=== PATIENT | female | born 1975 | race Caucasian/White ===

== ENCOUNTER 2018-09-20 14:40 | Observation (INO) ==
--- NOTE | 2018-09-20 15:27 | Emergency Department Note ---
Disposition Clinical Impression: Chest pain Qualifiers: Chest pain type: unspecified Qualified Code(s): R07.9 - Chest pain, unspecified Disposition: Admitted As Inpatient Condition: Fair Time of Disposition: 17:27 General Adult HPI - General Chief complaint: ED Chest Pain Stated complaint: Chest Pain Time Seen by Provider: 09/20/18 14:49 Source: patient - History of Present Illness HPI Narrative: Ms. Lai is a 43-year-old female presented to the ED complaining of chest pain ongoing for the past 3 days. She reports sensation as a chest pressure unable to characterize the pain radiated. She reports has been ongoing for the past 3 days nothing worsens or nothing alleviates it. She reports walking does not worsen the pain and has not tried anything to alleviate the pain. She reports one week ago she presented to the ED complaining of dizziness and the dizziness has resolved. At the time of her dizziness she had bradycardia and thereafter followed outpatient with her PCP who wanted an outpatient echo and Holter monitor for the bradycardia but this new chest pain developed concerning her. She denies any previous episode of chest pain in the past. She denies any radiation of chest pain to her arms or her face. She denies any numbness or tingling. Pain is reproducible with palpation. Denies any recent upper respir atory infection. She denies fever, chills, shortness of breath, nausea, emesis. Pain Scale: 4 - Related Data Home Medications Medication Instructions Recorded Confirmed Colace 1 cap PO DAILY 11/21/14 11/21/14 Ferrous Sulfate 1 tab PO DAILY 11/21/14 11/21/14 Vit/FA 1 tab PO DAILY 11/21/14 11/21/14 Previous Rx's Medication Instructions Recorded Docusate [Colace] 100 mg PO BID #60 capsule 11/23/14 Ferrous Sulfate 325 mg PO DAILY #30 tablet 11/23/14 Ibuprofen [Motrin] 600 mg PO Q6HR PRN #90 tablet 11/23/14 OxyCODONE/APAP 5/325 [Percocet 1 each PO Q4HR PRN #30 tablet 11/23/14 5/325] methylPREDNISolone [Medrol] 4 mg PO TAPER 21 Days tablet 12/02/15 Allergies Allergy/AdvReac Type Severity Reaction Status Date / Time No Known Allergies Allergy Verified 11/21/14 10:34 All systems ED: reviewed and negative except as stated. Review of Systems: As Per HPI Constitutional: Denies: fever, chills Eyes: Denies: eye pain, vision change ENT ED: Denies: ear pain, dysphagia Cardiovascular: Reports: chest pain. Denies: dyspnea on exertion Respiratory: Reports: cough. Denies: dyspnea, wheezes Gastrointestinal: Denies: abdominal pain, nausea, vomiting Genitourinary: Denies: urgency, dysuria Musculoskeletal: Denies: back pain Neurological: Denies: headache, weakness Psychiatric: Reports: other (Denies any recent stressors) Past Medical History - Past Medical History Medical history: Reports: no medical history Surgical history: Reports: (2008, no complications) Psychiatric history: Reports: anxiety, depression - Social History Smoking Status: Current every day smoker Smokeless Tobacco Status: No Alcohol use: Reports: occasionally Drug use: Reports: none Physical Exam - General General appearance: alert, in no apparent distress - Head Head exam: atraumatic, normocephalic - Eye Eye exam: Present: normal appearance, EOMI. Absent: scleral icterus - ENT ENT exam: normal oropharynx, mucous membranes moist - Neck Neck exam: Present: full ROM, trachea midline - Chest Chest inspection: Present: normal inspection, tenderness (Left-sided chest wall tenderness, ribs 3 and 4) - Respiratory Respiratory exam: Present: normal lung sounds bilaterally. Absent: respiratory distress, wheezes - Cardiovascular Cardiovascular exam: Present: regular rate, normal rhythm, +S1, +S2 - Abdominal Exam Abdominal exam: Present: soft, Non-Tender. Absent: distention, guarding - Extremities Exam Extremities exam: Present: normal inspection, full ROM, tenderness. Absent: pedal edema - Neurological Exam Neurological exam: Present: alert, oriented X3 - Psychiatric Psychiatric exam: Present: normal affect, normal mood - Skin Skin exam: Present: warm, dry, intact Course Vital Signs Temperature 98.0 F 09/20/18 14:41 Pulse Rate 60 09/20/18 14:41 Respiratory Rate 16 09/20/18 14:41 Blood Pressure 123/73 09/20/18 14:41 O2 Sat by Pulse Oximetry 100 09/20/18 14:41 Temperature 98.0 F 09/20/18 14:41 Pulse Rate 60 09/20/18 14:41 Respiratory Rate 16 09/20/18 14:41 Blood Pressure 123/73 09/20/18 14:41 O2 Sat by Pulse Oximetry 100 09/20/18 14:41 Oxygen Delivery Oxygen Delivery Room Air Medical Decision Making - MDM Narrative Medical decision making narrative: Ming is a 43 old female presented to the ED from her outpatient clinic office due to chest pain. The risks chest pain has been ongoing for the past 3 days had outpatient echocardiogram and Holter monitor scheduled mid September. Chest pain has recently started and she is concerned initially because she was bradycardic during her. Her outpatient PCP contacted cardiology who wanted her admitted and get workup inpatient. Troponin, CBC, BMP will within normal limits. Cardiology wanted her admitted to be worked up inpatient, admitted the patient with hospice - Medical Records Medical records reviewed: Yes I reviewed the patient's medical records. - Lab Data Lab results reviewed: Yes I reviewed the patient's lab results. Result diagrams: 09/20/18 15:24 09/20/18 15:24 Lab Results 09/20/18 09/20/18 Range/Units 15:24 15:24 WBC 6.4 (4.3-11.1) K/mcL RBC 4.06 (3.82-4.97) M/mcL Hgb 12.5 (11.5-15.4) g/dL Hct 37.8 (35.3-44.9) % MCV 93.1 (83.0-100.0) fL MCH 30.8 (28.0-33.3) pg MCHC 33.1 (31.6-35.5) g/dL RDW 13.3 (11.5-14.5) % Plt Count 239 (140-400) K/mcL MPV 10.1 (9.4-12.4) fL Immature Gran % 0.3 (0-4) % Seg Neutrophils % 50.5 % Lymphocytes % 36.9 % Monocytes % 8.9 % Eosinophils % 3.1 % Basophils % 0.3 % Neutrophils # 3.2 (1.6-8.9) K/mcL Lymphocytes # 2.4 (0.6-4.6) K/mcL Monocytes # 0.6 (0.0-1.3) K/mcL Eosinophils # 0.2 (0.0-0.6) K/mcL Basophils # 0.0 (0.0-0.2) K/mcL Sodium 139 (136-145) mEq/L Potassium 3.8 (3.5-5.1) mEq/L Chloride 103 (98-107) mEq/L Carbon Dioxide 28 (23-29) mEq/L BUN 11 (6-20) mg/dL Creatinine 0.69 (0.60-1.20) mg/dL Est GFR ( Amer) > 60 (> 60) Est GFR (Non-Af Amer) > 60 (> 60) BUN/Creatinine Ratio 16 (6-26) Glucose 89 (70-105) mg/dL Calculated Osmolality 287 (280-300) Calcium 9.9 (8.6-10.3) mg/dL Troponin I < 0.03 (< 0.04) ng/mL TSH 0.926 (0.340-5.600) mcIU/mL - Radiology Data Radiology results reviewed: Yes I reviewed the patient's radiology results. - EKG Data EKG #1 EKG attestation: Yes I reviewed and interpreted this EKG. EKG results narrative: Normal sinus rhythm. No acute injury pattern intervals unremarkable Attestation Statement - Attestation Attestation: Dr. Patterson note: Patient seen in conjunction with resident Dr. Evelyn Sepulveda; please see her charting for complete documentation. Spent [id number] time with the patient and agree with the patient's treatment and disposition. Constant parasternal chest pain without radiation of exacerbating alleviating factors for 3 days. Seen at an outpatient office today and apparently a phone call was made a waste removalist who recommended the patient be admitted and he will see the patient tomorrow so that is what we did. EKG and blood work unremarkable. Symptoms are not different today than not worse today.
[2018-09-20 15:48] LABS: Basophils % 0.3 %; Eosinophils # 0.2 K/mcL (0.0-0.6); Eosinophils % 3.1 %; Hematocrit 37.8 % (35.3-44.9); Hemoglobin 12.5 g/dL (11.5-15.4); Immature Granulocytes % 0.3 % (0-4); Lymphocytes # 2.4 K/mcL (0.6-4.6); Lymphocytes % 36.9 %; Mean Corpuscular HGB Conc 33.1 g/dL (31.6-35.5); Mean Corpuscular Hemoglobin 30.8 pg (28.0-33.3); Mean Corpuscular Volume 93.1 fL (83.0-100.0); Mean Platelet Volume 10.1 fL (9.4-12.4); Monocytes # 0.6 K/mcL (0.0-1.3); Monocytes % 8.9 %; Neutrophils # 3.2 K/mcL (1.6-8.9); Platelet Count 239 K/mcL (140-400); Red Blood Count 4.06 M/mcL (3.82-4.97); Red Cell Distribution Width 13.3 % (11.5-14.5); Segmented Neutrophils % 50.5 %; White Blood Count 6.4 K/mcL (4.3-11.1)
[2018-09-20 16:08] LABS: BUN/Creatinine Ratio 16 (6-26); Blood Urea Nitrogen 11 mg/dL (6-20); Calcium 9.9 mg/dL (8.6-10.3); Carbon Dioxide 28 mEq/L (23-29); Chloride 103 mEq/L (98-107); Glucose 89 mg/dL (70-105); Osmolality,Calculated 287 (280-300); Potassium 3.8 mEq/L (3.5-5.1); Sodium 139 mEq/L (136-145); Troponin I < 0.03 ng/mL (< 0.04); eGFR For African Americans > 60 (> 60); eGFR For Non-African Americans > 60 (> 60)
[2018-09-20 16:21] LABS: Thyroid Stimulating Hormone 0.926 mcIU/mL (0.340-5.600)
--- NOTE | 2018-09-20 17:24 | Internal Med History&Physical ---
Date of Encounter: 09/20/18 Time of Encounter: 17:13 Internal Medicine - H&P: HPI Chief complaint: Chest pain Admitted From: Emergency Dept History of present illness: Kathia Lai is a 43 F w hx smoker, anx/dep, who p/w chest pain. Pain began 2-3 days ago and is near constant, heavy/pressure-like sensation, not exertional or positional, not related to food, nothing seems to make it better or worse, pain not radiating, no N/V or diaphoresis. No dizziness in the last few days. Patient seen recently in ED lightheadedness and chest discomfort, dizziness worse with exertion at that time, and found to have resting heart rate in the 40s which re sponded appropriately during ambulation to 70s. Discharged to PCP follow up, who ordered TTE and Holter which have yet to be completed. No sick contacts, no recent viral illnesses, no long car/plane trips, no leg swelling, no fevers, no hx autoimmune disease personally or in family. Pt is a 1ppd smoker x24y. In the ED, pt HR 50, RR 16, SBP 120, 100% O2. ECG unremarkable except low voltage sinus aime. CXR wnl. Labs remarkably all wnl, WBC 6, Hb 12, Cr 0.7, trop <0.03. Past medical, surgical, social, and family histories reviewed and updated as below, with addition to FHx of no premature cardiac deaths or cardiac disease, mother has COPD Past Med Surg Social Fam HX - Past Medical History Medical history: no medical history Psychiatric history: anxiety, depression - Past Surgical History Surgical History: (2008, no complications) - Social History Smoking Status: Current every day smoker Smokeless Tobacco Status: No Alcohol use: occasionally Drug use: none - Family History Sister Hx Family Cardiac Disorders: No Hx Family Respiratory Disorders: No Hx Family Cancer: No Hx Family GI Disorders: No Hx Family Endocrine Disorder: Yes (diabetes-sister) Hx Family Neuromuscular Disorders: No Hx Family Neurologic Disorders: No Hx Family HEENT Disorders: No Hx Family Autoimmune Disorders: No Internal Medicine - H&P: Meds Colace 1 cap PO DAILY 11/21/14 [History] Ferrous Sulfate 1 tab PO DAILY 11/21/14 [History] Vit/FA 1 tab PO DAILY 11/21/14 [History] Docusate [Colace] 100 mg PO BID #60 capsule 11/23/14 [Rx] Ferrous Sulfate 325 mg PO DAILY #30 tablet 11/23/14 [Rx] Ibuprofen [Motrin] 600 mg PO Q6HR PRN #90 tablet 11/23/14 [Rx] OxyCODONE/APAP 5/325 [Percocet 5/325] 1 each PO Q4HR PRN #30 tablet 11/23/14 [Rx] methylPREDNISolone [Medrol] 4 mg PO TAPER 21 Days tablet 12/02/15 [Rx] Allergy/AdvReac Type Severity Reaction Status Date / Time No Known Allergies Allergy Verified 11/21/14 10:34 All Systems PM: A 10-system review of systems was performed and is negative for pertinent findings except as documented above in the HPI. - Constitutional Vitals: Temp Pulse Resp BP Pulse Ox 98.0 F 60 16 123/73 100 09/20/18 14:41 09/20/18 14:41 09/20/18 14:41 09/20/18 14:41 09/20/18 14:41 Exam: General: NAD, AAOx3, good eye contact, well appearing Head: Atraumatic, normocephalic. Face symmetric Eyes: EOMI, sclerae anicteric ENT: Mucous membranes moist. Normal oral mucosa and dentition. Trachea midline. Thoracic: No visible chest wall deformities. Normal breath sounds b/l, no wheezing or crackles Cardio: Normal S1 and S2, regular rate and rhythm, no murmurs. Abdomen: Soft, nontender, nondistended. Bowel sounds present. Extremities: Warm, well perfused. DP pulses 2+ b/l. No clubbing, cyanosis. No edema Skin: Intact. No rashes, bruises, or ulcers Neuro: Awake, fully oriented. Good memory, concentration, attention. Speech fluent. CN II-XII grossly intact. Strength 5/5 in b/l UE and LE Internal Med - H&P Results - Labs CBC & Chem 7: 09/20/18 15:24 09/20/18 15:24 Labs: Short CBC 09/20/18 Range/Units 15:24 WBC 6.4 (4.3-11.1) K/mcL Hgb 12.5 (11.5-15.4) g/dL Hct 37.8 (35.3-44.9) % Plt Count 239 (140-400) K/mcL Neutrophils # 3.2 (1.6-8.9) K/mcL BMP 09/20/18 15:24 Sodium 139 Potassium 3.8 Chloride 103 Carbon Dioxide 28 BUN 11 Creatinine 0.69 Glucose 89 Calcium 9.9 Cardiac Enzymes 09/20/18 Range/Units 15:24 Troponin I < 0.03 (< 0.04) ng/mL - Impressions ITS Impressions Chest X-Ray 09/20/18 15:11 IMPRESSION: No active cardiopulmonary disease D/ / Castillo Black MD / Castillo Black MD Interpreting Provider: Castillo Black MD - Summary of Assessment and Plan Summary of Assessment and Plan: Kathia Lai is a 43 F w hx smoker, anx/dep, who p/w atypical chest pain and bradycardia. Chest pain: CXR unremarkable, ECG w/o ST/T changes or NV depressions, and trop wnl. - tele - orthostatics - D-dimer - repeat trop in AM - TTE Bradycardia: HR 40-50s, ECG sinus aime without any block identified Anx/dep: not on meds, controlled Smoker: cessation advised, nicotine replacement offered, pt interested in patches/gum at discharge PPx: lovenox Activity: ambulate Tele: yes FEN: regular, no MIVF Lines: PIV Consults: Code: Full Dispo: obs, anticipate 1-2 days, will be homegoing
[2018-09-20] MEDS ORDERED: Ondansetron 4 MG/2 ML VIAL IVP PRN (17:28)
[2018-09-20] MEDS ORDERED: Naloxone 0.4 MG/ML INJ IVP PRN (17:28)
[2018-09-20] MEDS ORDERED: Acetaminophen 325 MG TABLET PO PRN (17:28)
[2018-09-21 02:47] LABS: Hematocrit 36.8 % (35.3-44.9); Hemoglobin 11.9 g/dL (11.5-15.4); Mean Corpuscular HGB Conc 32.3 g/dL (31.6-35.5); Mean Corpuscular Volume 92.7 fL (83.0-100.0); Mean Platelet Volume 10.3 fL (9.4-12.4); Platelet Count 225 K/mcL (140-400); Red Blood Count 3.97 M/mcL (3.82-4.97); Red Cell Distribution Width 13.4 % (11.5-14.5); White Blood Count 6.5 K/mcL (4.3-11.1)
[2018-09-21 03:15] LABS: BUN/Creatinine Ratio 19 (6-26); Blood Urea Nitrogen 12 mg/dL (6-20); Calcium 9.2 mg/dL (8.6-10.3); Carbon Dioxide 24 mEq/L (23-29); Chloride 105 mEq/L (98-107); Glucose 85 mg/dL (70-105); Osmolality,Calculated 283 (280-300); Potassium 3.6 mEq/L (3.5-5.1); Sodium 137 mEq/L (136-145); Troponin I < 0.03 ng/mL (< 0.04); eGFR For African Americans > 60 (> 60); eGFR For Non-African Americans > 60 (> 60)
[2018-09-21] MEDS: *HR* Enoxaparin 40 MG/0.4 ML SYRINGE SQ SCH (06:26)
--- NOTE | 2018-09-21 07:42 | Internal Med Progress Note ---
Hospitalist Progress Note - Encounter Date of Encounter: 09/21/18 Time of Encounter: 09:40 - Subjective Interval History: awake, no family present. No chest pain or pressure overnight or this morning. denies palpitations. no lightheadedness or dizziness. denies epigastric, throat, jaw, arm pain. no sob, n/v/diaphoresis. - Exam Vitals: Temp Pulse Resp BP Pulse Ox 98.6 F 59 16 107/39 98 09/21/18 07:16 09/21/18 07:16 09/21/18 07:16 09/21/18 07:16 09/21/18 07:16 Exam: gen- alert, awake,appears stated age cv- reg rate and rhythm, normal s1,s2, no murmurs appreciated, no le edema, no jvd lungs- ctabl, no wheezing, rhonchi or crackles, normal resp effort on room air abd- soft, non tender, non distended, + bs neuro- AAOx3 - Assessment and Plan (1) Bradycardia Current Visit: Yes Status: Acute (2) Chest pain Current Visit: Yes Status: Acute - Summary of Assessment and Plan Summary of Assessment and Plan: Kathia Lai is a 43 F w hx smoker, anx/dep, who is being observed for atypical chest pain and bradycardia. Chest pain: CXR unremarkable, ECG sinus without acute ischemic changes, dimer and trops neg Echo 09/20 normal -cards following and will obtain stress echo in am, npo p mn Bradycardia: HR 40-50s, ECG sinus aime without any block identified -tele, monitor lytes, stress echo in am Anx/dep: not on meds, controlled Smoker: cessation advised, nicotine replacement offered, pt interested in patches/gum at discharge PPx: lovenox Dispo: obs, anticipate 1-2 days, will be homegoing Internal Medicine: Result - Labs CBC & Chem 7: 09/21/18 01:41 09/21/18 01:41 Labs: Short CBC 09/20/18 09/21/18 Range/Units 15:24 01:41 WBC 6.4 6.5 (4.3-11.1) K/mcL Hgb 12.5 11.9 (11.5-15.4) g/dL Hct 37.8 36.8 (35.3-44.9) % Plt Count 239 225 (140-400) K/mcL Neutrophils # 3.2 (1.6-8.9) K/mcL BMP 09/20/18 09/21/18 15:24 01:41 Sodium 139 137 Potassium 3.8 3.6 Chloride 103 105 Carbon Dioxide 28 24 BUN 11 12 Creatinine 0.69 0.63 Glucose 89 85 Calcium 9.9 9.2 Cardiac Enzymes 09/20/18 09/21/18 Range/Units 15:24 01:41 Troponin I < 0.03 < 0.03 (< 0.04) ng/mL - ABG Interpretation ABG results: PT/INR, D-dimer < 215 ng/mLFEU (0-500) 09/20/18 15:24 - Impressions Impressions Chest X-Ray 09/20/18 15:11 IMPRESSION: No active cardiopulmonary disease D/ / Castillo Black MD / Castillo Black MD Interpreting Provider: Castillo Black MD Consult Discharge Plan - Plan Referrals: Veronica Mendoza DO [Primary Care Provider] - (2) Chest pain Qualifiers: Chest pain type: unspecified Qualified Code(s): R07.9 - Chest pain, unspecif ied
--- NOTE | 2018-09-21 11:13 | Cardiology Consult Note ---
<Elsa Tim - Last Filed: 09/21/18 13:00> Date of Encounter: 09/21/18 Time of Encounter: 09:00 Assessment and Plan (1) Chest pain Status: Acute Per cardiology: -Chest pain atypical. -Troponins negative. -TTE with LVEF preserved, no wall motion abnormalities noted. -Denies current chest pain. -ECG with no acute ischemic ECG changes noted. -WIll proceed with exercise stress echocardiogram in am. Qualifiers: Chest pain type: unspecified Qualified Code(s): R07.9 - Chest pain, unspecified (2) Bradycardia Status: Acute Per cardiology: -Sinus bradycardia. -Does report some intermittent dizziness, however may be vasovagal. -TTE with LVEF preserved, no wall motion abnormalities. -Average HR previous 12 hours noted to be 50. Minimum HR 39, nocturnal. -Mg, K, TSH within normal limits. -WIll proceed with exercise stress echo in am. Discussion w patient/family: The assessment and plan as outlined above was discussed with the patient and/or family members who expressed understanding and agreement. All questions were an swered. Thank you for involving us in the care of your patient. Please call with any questions. Discussed and reviewed with History of Present Illness Consult date: 09/20/18 Requesting physician: Veronica Mendoza Consult reason: chest pain, bradycardia Chief complaint: chest pain History of present illness: Ms. Lai is a 43 year old female with a relevant past medical history of tobacco abuse, who presented to [facility] with complaints of chest pain. Patient reports chest pain has been ongoing for 3 days. Patient states she first noticed chest pain while she was driving to work. States pain has been constant since. Denies aggravating or alleviating factors. Patient also reports lightheadedness for the past couple of weeks intermittently. States lightheadedness is typically worse with position change. Reports her HR has been running lower than normal also. States HR normally runnings 70s, however now running 40s-50s. Denies curre nt dizziness or chest pain. Denies shortness of breath. Denies increased fatigue. Past Med Surg Social Fam HX - Past Medical History Attestation: Yes The following information was validated with the patient. Source: patient, old records reviewed Medical history: no medical history Psychiatric history: anxiety, depression - Past Surgical History Surgical History: - Social History Smoking Status: Current every day smoker Smokeless Tobacco Status: No Alcohol use: occasionally Drug use: none - Family History Mother History Unknown: Yes Sister History Unknown: Yes Hx Family Cardiac Disorders: No Hx Family Respiratory Disorders: No Hx Family Cancer: No Hx Family GI Disorders: No Hx Family Endocrine Disorder: Yes (diabetes-sister) Hx Family Neuromuscular Disorders: No Hx Family Neurologic Disorders: No Hx Family HEENT Disorders: No Hx Family Autoimmune Disorders: No Medications and Allergies No Known Home Drugs 09/21/18 [History] Allergy/AdvReac Type Severity Reaction Status Date / Time No Known Allergies Allergy Verified 09/21/18 11:09 All Systems Review: The remainder of the systems were reviewed and are negative - Cardiovascular Cardiovascular: as per HPI, chest pain at rest, lightheadedness Physical Examination Vital Signs, Last 4 Hours Temp Pulse Resp BP Pulse Ox 09/21/18 10:47 98.4 F 82 16 123/67 99 09/21/18 07:16 98.6 F 59 16 107/39 98 General: Conversant, No Apparent Distress HEENT: Atraumatic, Normocephaly, Mucus Membranes Moist Neck: No JVD, Normal carotid pulses Cardiac: Reg Rate and Rhythm, Normal S1 and S2, No Murmur Lungs: Normal Breath Sounds, No Wheeze, Rales, Rhonchi Neuro: Alert and responsive, No focal deficits noted Abdomen: Soft, Non-Tender Skin: No rashes noted on visualized skin Musculoskeletal: No Chest Wall Tenderness Extremities: No Clubbing, No Cyanosis, No Edema, Normal Pulses Results 09/21/18 01:41 09/21/18 01:41 Lab Results Impressions Chest X-Ray 09/20/18 15:11 IMPRESSION: No active cardiopulmonary disease D/ / Castillo Black MD / Castillo Black MD Interpreting Provider: Castillo Black MD Echocardiogram 09/20/18 17:21 Impressions: LVEF 60%. Normal LV chamber size, wall thickness and function. Normal left ventricular diastolic function. Normal right ventricular structure and function. No evidence of pulmonary hypertension. No significant valvular dysfunction. Left Ventricular Wall Motion: Rest Echo Findings All wall segments showed normal motion. Findings: Study Quality * Technically adequate exam. ECG Findings * Sinus bradycardia. Left Ventricle * LVEF 60%. * Normal LV chamber size, wall thickness and function. * Normal left ventricular diastolic function. Right Ventricle * Normal right ventricular structure and function. Left Atrium * Mildly dilated left atrium. Right Atrium * Mildly dilated right atrium. Interatrial Septum * Interatrial septum not well evaluated. Aortic Valve * Trileaflet aortic valve with normal function. * No aortic regurgitation. * No aortic stenosis. Mitral Valve * Normal mitral valve structure and function. * No mitral stenosis. * No mitral regurgitation. Tricuspid Valve * Normal tricuspid valve structure and function. * Trace tricuspid regurgitation. * No evidence of pulmonary hypertension. Pulmonic Valve * Normal pulmonic valve structure and function. * No pulmonic regurgitation. Aorta * Normally sized aortic root. Pericardium * The pericardium appears normal. IVC * Normal IVC dimensions and inspiratory collapse. Pulmonary Artery * Normal visualized portions of the main pulmonary artery. Active Medications Acetaminophen (Tylenol) 650 mg PO Q6HR PRN PRN Reason: Mild Pain/Fever Stop: 03/22/19 17:29 Enoxaparin Sodium (Lovenox) 40 mg SQ 0600 CAT; Protocol Stop: 03/23/19 06:01 Last Admin: 09/21/18 06:26 Dose: 40 mg Documented by: Ondansetron HCl (Zofran) 4 mg IVP Q8HR PRN PRN Reason: Nausea And Vomiting Stop: 03/22/19 17:29 Laboratory Tests 09/20/18 09/21/18 09/21/18 15:24 01:41 01:41 Hgb 11.9 Potassium 3.6 Creatinine 0.63 Magnesium 2.0 Troponin I < 0.03 < 0.03 TSH 0.926 - Imaging and Cardiology Chest Xray: report reviewed Echo: report reviewed - EKG Interpretation EKG results cardiology: personally reviewed (ECG with SB, HR 50.), other (Telemetry reviewed with average HR previous 12 hours noted to be 50, SB. Minimum HR 39, nocturnal. PVCs noted.) Consult Discharge Plan - Plan Instructions: Chest Pain (DC) Referrals: Veronica Mendoza DO [Primary Care Provider] - (Please call to schedule follow up appointment within 7-10 days) Can Kang MD [Non-Partnered Physician] - (Office will call to schedule appointment) <Can Kang - Last Filed: 09/22/18 16:11> Date of Encounter: 09/21/18 - Attending Attestation I have personally performed a face to face evaluation on this patient. I have reviewed and agree with the documented findings and care plan as documented by the OPERATIONS ADVISOR. History and Exam by me shows: Patient is a current everyday smoker with atypical chest pain and asymptomatic bradycardia in the 40-50s. Agree with stress echocardiogram as well as telemetry monitoring for 24 hours. If negative patient can be discharged from cardiac standpoint. She is encouraged to quit smoking Thanks, Can Kang MD FACC Assessment and Plan Discussion w patient/family: The assessment and plan as outlined above was discussed with the patient and/or family members who expressed understanding and agreement. All questions were answered. Thank you for involving us in the care of your patient. Please call with any questions. History of Present Illness History of present illness: Ms. Lai is a 43 year old female All Systems Review: The remainder of the systems were reviewed and are negative Results 09/21/18 01:41 09/21/18 01:41
--- NOTE | 2018-09-21 12:45 | Electrocardiograph Report ---
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
[2018-09-22] MEDS: *HR* Enoxaparin 40 MG/0.4 ML SYRINGE SQ SCH (06:09)
[2018-09-22 11:09] VITALS: BP 105/64
--- NOTE | 2018-09-22 13:04 | Cardiology Progress Note ---
Date of Encounter: 09/22/18 Time of Encounter: 13:02 Assessment and Plan (1) Chest pain Current Visit: Yes Status: Acute Per cardiology: Patient c/o atypical chest pain on admission. Currently pain free/ Troponins negative. TTE with LVEF preserved, no wall motion abnormalities noted. ECG with no acute ischemic ECG changes noted. Stress echocardiogram was normal. Normal sinus rhythm on baseline ECG, heart rate 53 bpm with low voltage precordial leads. Stress ECG is negative for ischemia. No arrhythmias during exercise or recovery. The patient demonstrated a normal blood pressure response. Appropriate increase in LVEF with stress. No further cardiac work-up indicated at this time. Qualifiers: Chest pain type: unspecified Qualified Code(s): R07.9 - Chest pain, unspecified (2) Bradycardia Current Visit: Yes Status: Acute Per cardiology: -Sinus bradycardia. -Does report some intermittent dizziness, however may be vasovagal. On my exam HR 47 with no symptoms. HR responded appropriately to exercise. TTE with LVEF preserved, no wall motion abnormalities. -Average HR previous 12 hours noted to be 51. Minimum HR 43, nocturnal. -Mg, K, TSH within normal limits. Discussed with Dr. Kang, out-pt f/u. No further testing indicated. Discussion w patient/family: The assessment and plan as outlined above was discussed with the patient and/or family members who expressed understanding and agreement. All questions were answered. Thank you for involving us in the care of your patient. Please call with any questions. Subjective Principal diagnosis: chest pain, bradycardia Interval history: Pt seen in stress lab. Denies chest pain, dizziness, or lightheadedness overnight. HR 47 at time of my assessment. Objective Vital Signs, Last 4 Hours Temp Pulse Resp BP Pulse Ox 09/22/18 11:08 98.2 F 69 16 105/64 100 General: Conversant, No Apparent Distress HEENT: Atraumatic, Normocephaly, Mucus Membranes Moist Neck: No JVD, Normal carotid pulses Cardiac: Reg Rate and Rhythm, Normal S1 and S2, No Murmur Lungs: Normal Breath Sounds, No Wheeze, Rales, Rhonchi Neuro: Alert and responsive, No focal deficits noted Abdomen: Soft, Non-Tender Skin: No rashes noted on visualized skin Musculoskeletal: No Chest Wall Tenderness Extremities: No Clubbing, No Cyanosis, No Edema, Normal Pulses Results 09/21/18 01:41 09/21/18 01:41 - Imaging and Cardiology Stress Test: pending Echo: pending - EKG Interpretation EKG results cardiology: personally reviewed Consult Discharge Plan - Plan Referrals: Veronica Mendoza DO [Primary Care Provider] - Can Kang MD [Non-Partnered Physician] -
--- NOTE | 2018-09-22 13:47 | Discharge Summary ---
- NOTES TO OUTPATIENT PROVIDER Notes to Outpatient Provider: cardiology follow up outpt. no new meds. cardiac work up including stress echo normal here. Monitor bradycardia Date of Encounter: 09/22/18 Time of Encounter: 09:30 - Discharge Diagnosis (1) Bradycardia Priority: Secondary Status: Acute Assessment and Plan: Bradycardia: HR 40-50s, ECG sinus aime without any block identified Mg, K, TSH within normal limits stress echo 09/22 normal -cards followed, rec is for outpt follow up, no further work up required (2) Chest pain Priority: Primary Status: Resolved Assessment and Plan: Chest pain: resolved without intervention CXR unremarkable, ECG sinus without acute ischemic changes, dimer and trops neg Echo 09/20 normal Stress echo 09/22 normal -cards followed, no further work up required Qualifiers: Chest pain type: unspecified Qualified Code(s): R07.9 - Chest pain, unspecified Hospital course: Ms. Lai is a 43 year old female with pmhx anxiety, depression and tobacco dependence who presented with chest pain. She was found to have bradycardia. Cards work up can be seen in full detail in diagnoses section of this document. Chest pain resolved without intervention. She still had bradycardia but asymptomatic. She felt baseline prior to discharge. She is cleared for dc from cardiology perspective and will fu outpt. Discharge discussed with: patient, nurse, financial analysis consultant Time spent discussing smoking cessation with patient: more than 10 minutes - Time Spent with Patient Total time spent providing and/or coordinating discharge services: Time spent: Greater than 30 minutes (40 min) - Discharge Medications Prescriptions: No Action No Known Home Drugs 1 each .ROUTE AD each Home Medications: No Known Home Drugs 09/21/18 [History] Allergies/Adverse Reactions: Allergy/AdvReac Type Severity Reaction Status Date / Time No Known Allergies Allergy Verified 09/21/18 11:09 Date of admission: 09/20/18 17:57 Primary care physician: Veronica Mendoza DO Consults: 09/20/18 21:36 Consult to Cardiology [CONS] Routine Comment: Consulting Provider: Cardiology Sandhya Reason for Consult: atypical chest pain, bradycardia Time Notified: 14:00 Call Completed: Yes Discharging clinician: Josette Dacosta - Constitutional Vitals: Temp Pulse Resp BP Pulse Ox 98.2 F 69 16 105/64 100 09/22/18 11:08 09/22/18 11:08 09/22/18 11:08 09/22/18 11:08 09/22/18 11:08 Exam: awake alert and feeling great. remains without any chest pain, pressure, palpitations, sob or n/v. no presyncoep or syncope. eager for dc to home gen- alert, awake,appears stated age cv- reg rate and rhythm, normal s1,s2, no murmurs appreciated lungs- ctabl, no wheezing, rhonchi or crackles, normal resp effort on room air abd- soft, non tender, non distended, + bs neuro- AAOx3 - Patient Status Disposition: Home, Self-Care Condition: Good Functional capacity at discharge: independent ambulation Overall status at discharge: patient is progressing back to baseline - Discharge Instructions Instructions: Chest Pain (DC) Follow Up With: Veronica Mednoza DO [Primary Care Provider] - (Please call to schedule follow up appointment within 7-10 days) Can Kang MD [Non-Partnered Physician] - (Office will call to schedule appointment) - Diet and Activity Activity: increase activity as tolerated Diet: advance to your usual diet
== END 2018-09-22 15:02 | disposition home or self-care (01) ==
LOC: EMEROOARM 14:40 → 3BNU 14:40 → SUATTDRO 17:57 → 3BNU 18:56
PROVIDERS: ADMIT Internal Medicine; ATTEND Internal Medicine